=== PATIENT | female | born 1980 | race Caucasian/White ===

== ENCOUNTER 2021-03-04 11:14 | Emergency (ER) | payer OTHER ==
[~2021-03-04] VITALS: Ht 167.6 cm; Wt 49.7 kg
[2021-03-04 11:15] VITALS: BP 119/72
[2021-03-04] MEDS ORDERED: BACITRACIN ZINC OINT 500U/GM, 0.9 GM ONE ×3 (12:27→12:44)
--- NOTE | 2021-03-04 12:36 | NUR ---
PT LUNCH TRAY DELIVERED. TECH PREPPING FOR PT SHOWER AND FOOT CLEANING/BANDAGING.
--- NOTE | 2021-03-04 13:18 | NUR ---
Pt with blister to toes, cleaned and abx ointment applied.
== END 2021-03-04 14:37 | disposition home or self-care (01) ==
LOC: EDBD 11:14 → ED 14:20
DX: S90.414A Abrasion, right lesser toe(s), initial encounter (principal); X58.XXXA Exposure to other specified factors, initial encounter; Y93.89 Activity, other specified; Y92.89 Other specified places as the place of occurrence of the external cause; Y99.8 Other external cause status
CPT/HCPCS: 99283